=== PATIENT | male | born 1960 | race Two or more races ===

== ENCOUNTER 2016-06-11 20:05 | Inpatient (IN) | payer MEDICAID ==
[~2016-06-11] VITALS: Ht 165.1 cm; Wt 71.1 kg
[2016-06-11] MEDS ORDERED: HYDROcodone-ACET 10/325MG TAB PO ONE (23:45)
[2016-06-12] MEDS ORDERED: ACETAMINOPHEN 325 MG TAB PO ONE ×2 (09:00→16:20)
[2016-06-12] MEDS ORDERED: SODIUM CHLORIDE 0.9% 1,000 ML IV ONE (17:18)
[2016-06-12 17:54] LABS: Basophils # (auto) 0.1 uL; Basophils % (auto) 1.2 % (0.0-2.0); DEFINITIVE VIEW TRANSMISSION; Eosinophils # (auto) 0 uL; Eosinophils % (auto) 0.1 % (0.0-7.0); Hematocrit 31.8 % (41.0-53.0); Hemoglobin 10.2 g/dL (13.5-17.5); Lymphocytes # (auto) 1.1 uL; Lymphocytes % (auto) 9.3 % (10.0-50.0); Mean Corpuscular Hemoglobin 26.7 pg (28.0-32.0); Mean Corpuscular Hgb Conc. 32.2 g/dL (32.0-36.0); Mean Corpuscular Volume 82.8 fL (80.0-100.0); Mean Platelet Volume 7.5 fL (7.4-10.4); Monocytes # (auto) 0.5 uL; Monocytes % (auto) 4.5 % (0.0-12.0); Neutrophils # (auto) 10.2 uL; Neutrophils % (auto) 84.9 % (37.0-80.0); Platelet Count (auto) 646 10^3/uL (140-450); Red Cell Distribution Width 15.3 % (11.6-16.0)
[2016-06-12 18:08] LABS: Partial Thromboplastin Time 36.4 sec (22.64-33.71)
[2016-06-12 18:09] LABS: INR 1.26 (0.9-1.15)
[2016-06-12 18:18] LABS: Albumin 2.6 g/dL (3.4-5.0); Calcium 9.3 mg/dL (8.5-10.1)
[2016-06-12] MEDS: ACETAMINOPHEN 325 MG TAB PO PRN (18:24)
[2016-06-12 18:27] LABS: Bilirubin, Total 0.6 mg/dL (0.2-1.0); Total Protein 8.4 g/dL (6.4-8.2)
[2016-06-12 18:34] LABS: B-Type Natriuretic Peptide 68.21 pg/mL (0-100)
[2016-06-12 18:57] LABS: Potassium 2.6 mmol/L (3.5-5.1)
[2016-06-12] MEDS: POTASSIUM CHL 20MEQ/100ML 100 ML IV SCH ×2 (19:15→22:49)
[2016-06-12] MEDS ORDERED: cefTRIAXone 1GM/50ML D5W 50 ML IV ONE (19:15)
[2016-06-12 20:00] LABS: Temperature: 22.5 C (20.0-25.0)
[2016-06-12] MEDS ORDERED: ACETAMINOPHEN 325 MG TAB PO PRN (21:15)
[2016-06-12] MEDS ORDERED: ONDANSETRON HCL 4 MG/2 ML VIAL IV PRN (21:15)
[2016-06-12 22:30] VITALS: BP 160/77
[2016-06-12] MEDS: ENOXAPARIN SOD 40 MG/0.4 ML SYRINGE SC SCH (22:48)
[2016-06-12] MEDS: FAMOTIDINE 20 MG TAB PO SCH (22:49)
[2016-06-12] MEDS: HYDROcodone-ACET 5/325MG TAB PO PRN (22:49)
[2016-06-12] MEDS: SODIUM CHLORIDE 0.9% 1,000 ML IV SCH (22:49)
[2016-06-12 23:51] VITALS: BP 160/77
[2016-06-13] MEDS ORDERED: IBU800T PO (00:09)
[2016-06-13] MEDS: POTASSIUM CHL 20MEQ/100ML 100 ML IV SCH (03:09)
[2016-06-13 05:00] VITALS: BP 132/74
[2016-06-13 06:25] LABS: Basophils # (auto) 0 uL; Basophils % (auto) 0.4 % (0.0-2.0); DEFINITIVE VIEW TRANSMISSION; Eosinophils # (auto) 0 uL; Eosinophils % (auto) 0.1 % (0.0-7.0); Hematocrit 28.7 % (41.0-53.0); Lymphocytes # (auto) 1.2 uL; Lymphocytes % (auto) 11.5 % (10.0-50.0); Mean Corpuscular Hemoglobin 26.1 pg (28.0-32.0); Mean Corpuscular Hgb Conc. 31.4 g/dL (32.0-36.0); Mean Corpuscular Volume 83.3 fL (80.0-100.0); Mean Platelet Volume 7.9 fL (7.4-10.4); Monocytes # (auto) 0.5 uL; Monocytes % (auto) 4.7 % (0.0-12.0); Neutrophils # (auto) 8.6 uL; Neutrophils % (auto) 83.3 % (37.0-80.0); Platelet Count (auto) 551 10^3/uL (140-450); Red Cell Distribution Width 15.5 % (11.6-16.0); White Blood Cell 10.3 10^3/uL (4.4-10.8)
[2016-06-13] MEDS: HYDROcodone-ACET 5/325MG TAB PO PRN ×4 (06:34→21:16)
[2016-06-13 06:57] LABS: Albumin 2.2 g/dL (3.4-5.0); BUN/Creatinine Ratio 10.7; Bilirubin, Total 0.6 mg/dL (0.2-1.0); Calcium 8.5 mg/dL (8.5-10.1); Total Protein 7.6 g/dL (6.4-8.2)
[2016-06-13 07:05] LABS: Potassium 2.9 mmol/L (3.5-5.1)
[2016-06-13 08:00] VITALS: BP 130/69
[2016-06-13 09:00] VITALS: BP 130/69
[2016-06-13] MEDS: ENOXAPARIN SOD 40 MG/0.4 ML SYRINGE SC SCH (09:59)
[2016-06-13] MEDS: FAMOTIDINE 20 MG TAB PO SCH ×2 (09:59→21:35)
[2016-06-13 10:17] LABS: Urine Bilirubin Negative (Negative); Urine Blood Negative /uL (Negative); Urine Color Yellow (Yellow); Urine Glucose Normal (Normal); Urine Nitrite Negative (Negative); Urine RBC 1 /hpf (0 - 3); Urine Squamous Epithelial Cell FEW /hpf (<5)
[2016-06-13 10:21] LABS: Urine Ketone 3+ (Negative)
[2016-06-13 13:00] VITALS: BP 130/72
[2016-06-13] MEDS: SODIUM CHLORIDE 0.9% 1,000 ML IV SCH ×2 (13:36→23:36)
[2016-06-13 17:00] VITALS: BP_SYST 120; BP_SYST 152; BP_DIAS 53; BP_DIAS 82
[2016-06-13] MEDS: POTASSIUM CHLORIDE 20 MEQ, LIDOCAINE 1% (LOCAL ANESTH.) 2 ML in SODIUM CHL 0.9% 100 ML IV SCH ×3 (17:31→23:36)
[2016-06-13] MEDS: ACETAMINOPHEN 325 MG TAB PO PRN (19:15)
[2016-06-13] MEDS: CELECOXIB 100 MG CAP PO SCH (21:35)
[2016-06-13 22:00] VITALS: BP 116/64
[2016-06-14] MEDS: HYDROcodone-ACET 5/325MG TAB PO PRN ×3 (02:02→10:04)
[2016-06-14 05:30] VITALS: BP 129/82
[2016-06-14 07:54] VITALS: BP 123/78
[2016-06-14 08:32] VITALS: BP 123/78
[2016-06-14 09:08] LABS: Basophils # (auto) 0 uL; Basophils % (auto) 0.4 % (0.0-2.0); DEFINITIVE VIEW TRANSMISSION; Eosinophils # (auto) 0.1 uL; Eosinophils % (auto) 1.5 % (0.0-7.0); Hemoglobin 9.4 g/dL (13.5-17.5); Lymphocytes # (auto) 1.4 uL; Lymphocytes % (auto) 13.9 % (10.0-50.0); Mean Corpuscular Hemoglobin 26.3 pg (28.0-32.0); Mean Corpuscular Hgb Conc. 31.3 g/dL (32.0-36.0); Mean Platelet Volume 7.8 fL (7.4-10.4); Monocytes # (auto) 0.5 uL; Neutrophils % (auto) 79.2 % (37.0-80.0); Platelet Count (auto) 585 10^3/uL (140-450); Red Cell Distribution Width 15.7 % (11.6-16.0); White Blood Cell 10.1 10^3/uL (4.4-10.8)
[2016-06-14 09:23] LABS: BUN/Creatinine Ratio 10.2; Calcium 8.7 mg/dL (8.5-10.1); Potassium 3.1 mmol/L (3.5-5.1)
[2016-06-14] MEDS: ENOXAPARIN SOD 40 MG/0.4 ML SYRINGE SC SCH (09:30)
[2016-06-14] MEDS: CELECOXIB 100 MG CAP PO SCH (09:30)
[2016-06-14] MEDS: FAMOTIDINE 20 MG TAB PO SCH ×2 (10:04→22:21)
[2016-06-14 17:27] VITALS: BP 125/54
[2016-06-14] MEDS ORDERED: POTASSIUM CHL 20 Meq TABLET PO ONE (18:45)
[2016-06-14] MEDS ORDERED: KETOROLAC TROMETH 30 MG/ML 1ML VIAL IV PRN (20:15)
[2016-06-14] MEDS: KETOROLAC TROMETH 30 MG/ML 1ML VIAL IV PRN (20:32)
[2016-06-14 22:00] VITALS: BP 149/81
[2016-06-14] MEDS: methylPREDNISolone SOD SUCC 40 MG/ML VL IV SCH (22:21)
[2016-06-14] MEDS: SODIUM CHLORIDE 0.9% 1,000 ML IV SCH (23:13)
[2016-06-15] VITALS (7 sets, daily range): BP systolic 110–137; BP diastolic 66–78
[2016-06-15] MEDS: methylPREDNISolone SOD SUCC 40 MG/ML VL IV SCH ×2 (09:08→21:14)
[2016-06-15] MEDS: KETOROLAC TROMETH 30 MG/ML 1ML VIAL IV PRN ×3 (09:08→21:14)
[2016-06-15] MEDS: FAMOTIDINE 20 MG TAB PO SCH ×2 (09:08→21:14)
[2016-06-15] MEDS: ENOXAPARIN SOD 40 MG/0.4 ML SYRINGE SC SCH (09:08)
[2016-06-15] MEDS ORDERED: POTASSIUM CHL 20 Meq TABLET PO ONE (10:15)
[2016-06-15 11:55] LABS: Hepatitis B Surface Antibody Negative
[2016-06-15] MEDS: SODIUM CHLORIDE 0.9% 1,000 ML IV SCH (16:05)
[2016-06-15] MEDS ORDERED: BOOST 8 ounces PO SCH ×2 (18:00)
[2016-06-15] MEDS ORDERED: PRO-STAT 64 30ML PO SCH ×2 (18:00)
[2016-06-16] VITALS (7 sets, daily range): BP systolic 126–160; BP diastolic 70–98
[2016-06-16] MEDS: SODIUM CHLORIDE 0.9% 1,000 ML IV SCH (00:22)
[2016-06-16] MEDS: KETOROLAC TROMETH 30 MG/ML 1ML VIAL IV PRN ×2 (04:29→23:50)
[2016-06-16 08:09] LABS: Rheumatoid Arthritis Factor 41.5 IU/mL (0.0-13.9)
[2016-06-16] MEDS: methylPREDNISolone SOD SUCC 40 MG/ML VL IV SCH ×2 (10:25→21:47)
[2016-06-16] MEDS: HYDROcodone-ACET 5/325MG TAB PO PRN ×3 (10:27→19:57)
[2016-06-16] MEDS: POTASSIUM CHL 20 Meq TABLET PO SCH (10:27)
[2016-06-16] MEDS: FAMOTIDINE 20 MG TAB PO SCH ×2 (10:27→21:47)
[2016-06-16] MEDS: ENOXAPARIN SOD 40 MG/0.4 ML SYRINGE SC SCH (10:28)
[2016-06-16 18:06] LABS: Sjogren's Anti-SS-A Antibody <0.2 AI (0.0-0.9)
[2016-06-17] MEDS: SODIUM CHLORIDE 0.9% 1,000 ML IV SCH (04:19)
[2016-06-17 05:29] VITALS: BP 155/73
[2016-06-17 08:59] VITALS: BP 147/78
[2016-06-17] MEDS: FAMOTIDINE 20 MG TAB PO SCH ×2 (09:23→21:52)
[2016-06-17] MEDS: POTASSIUM CHL 20 Meq TABLET PO SCH (09:23)
[2016-06-17] MEDS: methylPREDNISolone SOD SUCC 40 MG/ML VL IV SCH (09:24)
[2016-06-17] MEDS: ENOXAPARIN SOD 40 MG/0.4 ML SYRINGE SC SCH (09:25)
[2016-06-17] MEDS: HYDROcodone-ACET 5/325MG TAB PO PRN ×4 (09:36→21:52)
[2016-06-17 12:51] VITALS: BP 161/88
[2016-06-17 16:19] VITALS: BP 152/90
[2016-06-17 22:00] VITALS: BP 147/83
[2016-06-17] MEDS: TEMAZEPAM 15 MG CAP PO PRN (22:42)
[2016-06-18 05:00] VITALS: BP 143/78
[2016-06-18] MEDS: HYDROcodone-ACET 5/325MG TAB PO PRN ×4 (05:27→19:57)
[2016-06-18 08:00] VITALS: BP 139/87
[2016-06-18 09:00] VITALS: BP 139/87
[2016-06-18] MEDS: FAMOTIDINE 20 MG TAB PO SCH ×2 (10:31→21:55)
[2016-06-18] MEDS: POTASSIUM CHL 20 Meq TABLET PO SCH (10:31)
[2016-06-18] MEDS: ENOXAPARIN SOD 40 MG/0.4 ML SYRINGE SC SCH (10:32)
[2016-06-18 12:31] VITALS: BP 136/83
[2016-06-18] MEDS: NAPROXEN 500 MG TAB PO PRN (15:29)
[2016-06-18] MEDS ORDERED: predniSONE 20 MG TAB PO ONE (15:30)
[2016-06-18 17:02] VITALS: BP 124/77
[2016-06-18 22:00] VITALS: BP 127/84
[2016-06-19] MEDS: HYDROcodone-ACET 5/325MG TAB PO PRN ×5 (00:36→21:12)
[2016-06-19] MEDS: TEMAZEPAM 15 MG CAP PO PRN ×2 (00:51→21:17)
[2016-06-19 05:00] VITALS: BP 98/57
[2016-06-19 09:00] VITALS: BP 136/80
[2016-06-19] MEDS: ENOXAPARIN SOD 40 MG/0.4 ML SYRINGE SC SCH (09:04)
[2016-06-19] MEDS: POTASSIUM CHL 20 Meq TABLET PO SCH (09:05)
[2016-06-19] MEDS: predniSONE 20 MG TAB PO SCH (09:05)
[2016-06-19] MEDS: FAMOTIDINE 20 MG TAB PO SCH ×2 (09:05→21:17)
[2016-06-19] MEDS: NAPROXEN 500 MG TAB PO PRN (09:15)
[2016-06-19 13:00] VITALS: BP 134/77
[2016-06-19 17:00] VITALS: BP 145/87
[2016-06-19 22:00] VITALS: BP_SYST 134; BP_SYST 144; BP_DIAS 74; BP_DIAS 79
[2016-06-20] MEDS: NAPROXEN 500 MG TAB PO PRN (00:42)
[2016-06-20 06:00] VITALS: BP 156/80
[2016-06-20 09:04] VITALS: BP 142/89
[2016-06-20] MEDS: POTASSIUM CHL 20 Meq TABLET PO SCH (10:29)
[2016-06-20] MEDS: predniSONE 20 MG TAB PO SCH (10:29)
[2016-06-20] MEDS: ENOXAPARIN SOD 40 MG/0.4 ML SYRINGE SC SCH (10:30)
[2016-06-20] MEDS: FAMOTIDINE 20 MG TAB PO SCH ×2 (10:30→21:31)
[2016-06-20] MEDS: HYDROcodone-ACET 5/325MG TAB PO PRN ×2 (10:31→19:38)
[2016-06-20 13:07] VITALS: BP 127/77
[2016-06-20 16:40] VITALS: BP 139/78
[2016-06-20 21:29] VITALS: BP 115/63
[2016-06-20] MEDS: TEMAZEPAM 15 MG CAP PO PRN (21:31)
[2016-06-21] MEDS: HYDROcodone-ACET 5/325MG TAB PO PRN ×3 (00:17→18:33)
[2016-06-21 05:05] VITALS: BP 116/75
[2016-06-21 08:30] VITALS: BP 132/10
[2016-06-21] MEDS: FAMOTIDINE 20 MG TAB PO SCH ×2 (09:49→22:02)
[2016-06-21] MEDS: predniSONE 20 MG TAB PO SCH (09:49)
[2016-06-21] MEDS: POTASSIUM CHL 20 Meq TABLET PO SCH (09:49)
[2016-06-21] MEDS: ENOXAPARIN SOD 40 MG/0.4 ML SYRINGE SC SCH (09:49)
[2016-06-21 13:00] VITALS: BP 125/57
[2016-06-21 16:55] VITALS: BP 132/79
[2016-06-21] MEDS: NAPROXEN 500 MG TAB PO PRN (20:51)
[2016-06-21 21:57] VITALS: BP 134/80
[2016-06-21] MEDS: TEMAZEPAM 15 MG CAP PO PRN (22:02)
[2016-06-22 04:55] VITALS: BP 137/87
[2016-06-22] MEDS: HYDROcodone-ACET 5/325MG TAB PO PRN ×3 (06:50→20:21)
[2016-06-22 09:00] VITALS: BP 146/80
[2016-06-22] MEDS: FAMOTIDINE 20 MG TAB PO SCH ×2 (10:00→22:17)
[2016-06-22] MEDS: POTASSIUM CHL 20 Meq TABLET PO SCH (10:00)
[2016-06-22] MEDS: predniSONE 20 MG TAB PO SCH (10:00)
[2016-06-22] MEDS: ENOXAPARIN SOD 40 MG/0.4 ML SYRINGE SC SCH (10:01)
[2016-06-22 13:00] VITALS: BP 111/67
[2016-06-22 17:00] VITALS: BP 128/77
[2016-06-22 21:47] VITALS: BP 125/84
[2016-06-22] MEDS: TEMAZEPAM 15 MG CAP PO PRN (22:17)
[2016-06-22] MEDS: NAPROXEN 500 MG TAB PO PRN (22:17)
[2016-06-23 05:00] VITALS: BP 111/75
[2016-06-23 08:00] VITALS: BP 145/78
[2016-06-23] MEDS: HYDROcodone-ACET 5/325MG TAB PO PRN ×3 (08:37→20:40)
[2016-06-23 09:26] VITALS: BP 145/78
[2016-06-23] MEDS: FAMOTIDINE 20 MG TAB PO SCH ×2 (10:10→23:03)
[2016-06-23] MEDS: POTASSIUM CHL 20 Meq TABLET PO SCH (10:10)
[2016-06-23] MEDS: ENOXAPARIN SOD 40 MG/0.4 ML SYRINGE SC SCH (10:10)
[2016-06-23] MEDS: predniSONE 20 MG TAB PO SCH (10:10)
[2016-06-23 12:11] VITALS: BP 95/55
[2016-06-23 17:18] VITALS: BP 138/78
[2016-06-23] MEDS: NAPROXEN 500 MG TAB PO PRN (20:40)
[2016-06-23 22:00] VITALS: BP 146/81
[2016-06-23] MEDS: TEMAZEPAM 15 MG CAP PO PRN (23:00)
[2016-06-24] MEDS: HYDROcodone-ACET 5/325MG TAB PO PRN ×4 (01:07→18:13)
[2016-06-24 05:00] VITALS: BP 142/89
[2016-06-24 09:00] VITALS: BP 120/75
[2016-06-24] MEDS: predniSONE 20 MG TAB PO SCH (09:12)
[2016-06-24] MEDS: NAPROXEN 500 MG TAB PO PRN ×2 (09:13→21:25)
[2016-06-24] MEDS: POTASSIUM CHL 20 Meq TABLET PO SCH (09:14)
[2016-06-24] MEDS: FAMOTIDINE 20 MG TAB PO SCH ×2 (09:14→21:26)
[2016-06-24] MEDS: ENOXAPARIN SOD 40 MG/0.4 ML SYRINGE SC SCH (09:14)
[2016-06-24 13:00] VITALS: BP 108/66
[2016-06-24 17:00] VITALS: BP 128/82
[2016-06-24] MEDS: TEMAZEPAM 15 MG CAP PO PRN (21:26)
[2016-06-24 22:00] VITALS: BP 116/68
[2016-06-25] MEDS: HYDROcodone-ACET 5/325MG TAB PO PRN ×4 (04:31→22:09)
[2016-06-25 04:55] VITALS: BP 139/82
[2016-06-25 09:00] VITALS: BP 113/64
[2016-06-25] MEDS: ENOXAPARIN SOD 40 MG/0.4 ML SYRINGE SC SCH (10:31)
[2016-06-25] MEDS: FAMOTIDINE 20 MG TAB PO SCH ×2 (10:31→22:09)
[2016-06-25] MEDS: NAPROXEN 500 MG TAB PO PRN ×2 (10:32→22:25)
[2016-06-25] MEDS: predniSONE 20 MG TAB PO SCH (10:32)
[2016-06-25] MEDS: POTASSIUM CHL 20 Meq TABLET PO SCH (10:32)
[2016-06-25 13:00] VITALS: BP 115/66
[2016-06-25 17:00] VITALS: BP 117/76
[2016-06-25] MEDS: TEMAZEPAM 15 MG CAP PO PRN (17:35)
[2016-06-25 21:40] VITALS: BP 117/80
[2016-06-26] MEDS: HYDROcodone-ACET 5/325MG TAB PO PRN ×4 (03:51→21:03)
[2016-06-26 04:38] VITALS: BP 130/72
[2016-06-26 07:00] VITALS: BP 112/70
[2016-06-26] MEDS: POTASSIUM CHL 20 Meq TABLET PO SCH (09:10)
[2016-06-26] MEDS: ENOXAPARIN SOD 40 MG/0.4 ML SYRINGE SC SCH (09:10)
[2016-06-26] MEDS: predniSONE 20 MG TAB PO SCH (09:10)
[2016-06-26] MEDS: FAMOTIDINE 20 MG TAB PO SCH ×2 (09:11→21:01)
[2016-06-26 11:57] VITALS: BP 125/76
[2016-06-26 16:52] VITALS: BP 108/68
[2016-06-26 20:00] VITALS: BP 127/67
[2016-06-26] MEDS: NAPROXEN 500 MG TAB PO PRN (21:07)
[2016-06-26 22:00] VITALS: BP 127/67
[2016-06-27] VITALS (7 sets, daily range): BP systolic 112–135; BP diastolic 80–97
[2016-06-27] MEDS: TEMAZEPAM 15 MG CAP PO PRN (00:33)
[2016-06-27] MEDS: HYDROcodone-ACET 5/325MG TAB PO PRN ×5 (01:07→22:26)
[2016-06-27] MEDS: POTASSIUM CHL 20 Meq TABLET PO SCH (12:09)
[2016-06-27] MEDS: FAMOTIDINE 20 MG TAB PO SCH ×2 (12:09→12:11)
[2016-06-27] MEDS: predniSONE 20 MG TAB PO SCH (12:10)
[2016-06-27] MEDS: ENOXAPARIN SOD 40 MG/0.4 ML SYRINGE SC SCH (12:10)
[2016-06-27] MEDS: NAPROXEN 500 MG TAB PO PRN (12:17)
[2016-06-28] VITALS (7 sets, daily range): BP systolic 107–134; BP diastolic 68–80
[2016-06-28] MEDS ORDERED: NAPROXEN 500 MG TAB PO ONE
[2016-06-28] MEDS ORDERED: TEMAZEPAM 15 MG CAP PO ONE
[2016-06-28] MEDS ORDERED: GASTROGRAFIN 120 ML SOL ONE (12:38)
[2016-06-28] MEDS: predniSONE 20 MG TAB PO SCH (13:01)
[2016-06-28] MEDS: POTASSIUM CHL 20 Meq TABLET PO SCH (13:02)
[2016-06-28] MEDS: ENOXAPARIN SOD 40 MG/0.4 ML SYRINGE SC SCH (13:02)
[2016-06-28] MEDS: FAMOTIDINE 20 MG TAB PO SCH ×2 (13:02→22:00)
[2016-06-29 05:30] VITALS: BP 112/73
[2016-06-29 09:00] VITALS: BP 122/77
[2016-06-29] MEDS: predniSONE 20 MG TAB PO SCH (10:00)
[2016-06-29] MEDS: ENOXAPARIN SOD 40 MG/0.4 ML SYRINGE SC SCH (10:00)
[2016-06-29] MEDS: FAMOTIDINE 20 MG TAB PO SCH (10:00)
[2016-06-29] MEDS: POTASSIUM CHL 20 Meq TABLET PO SCH (10:00)
[2016-06-29 13:00] VITALS: BP 101/64
== END 2016-06-29 19:50 | disposition home or self-care (01) | DRG 346 ==
LOC: ER 20:09 → EAST 20:10 → EDBD 20:10 → EAST 06-12 22:04 → UNDODISIN 06-27 19:40
PROVIDERS: ADMIT Nurse Practitioner; ATTEND Internal Medicine Pulmonary Disease
DX: M06.9 Rheumatoid arthritis, unspecified (principal); E43 Unspecified severe protein-calorie malnutrition; E88.09 Other disorders of plasma-protein metabolism, not elsewhere classified; M06.4 Inflammatory polyarthropathy; S56.911A Strain of unspecified muscles, fascia and tendons at forearm level, right arm, initial encounter; D47.3 Essential (hemorrhagic) thrombocythemia; R62.7 Adult failure to thrive; S83.91XA Sprain of unspecified site of right knee, initial encounter; D64.9 Anemia, unspecified; E87.6 Hypokalemia; D75.89 Other specified diseases of blood and blood-forming organs; M79.1 Myalgia; W19.XXXA Unspecified fall, initial encounter; Z59.0 Homelessness; Z91.81 History of falling; Z68.26 Body mass index [BMI] 26.0-26.9, adult; Y93.89 Activity, other specified; Y92.89 Other specified places as the place of occurrence of the external cause
CPT/HCPCS: 36415; 71010; 72040; 73130; 73562; 73590; 80048; 80053; 81001; 83516; 83880; 84132; 84484; 84550; 85025; 85610; 85652; 85730; 86141; 86200; 86225; 86235; 86431; 86706; 86803; 86812; 87040; 87081; 87340; 96365; 97001; 97110; 97116; 97530; J0696; J1885; J2001; J3480

== ENCOUNTER 2016-07-10 19:39 | Emergency (ER) | payer MEDICAID ==
[~2016-07-10] VITALS: Ht 165.1 cm; Wt 90.7 kg
[2016-07-10 21:16] LABS: Basophils # (auto) 0 uL; Basophils % (auto) 0.3 % (0.0-2.0); DEFINITIVE VIEW TRANSMISSION; Eosinophils # (auto) 0.3 uL; Eosinophils % (auto) 2.4 % (0.0-7.0); Hematocrit 37.4 % (41.0-53.0); Hemoglobin 12.2 g/dL (13.5-17.5); Lymphocytes # (auto) 1.4 uL; Lymphocytes % (auto) 12.2 % (10.0-50.0); Mean Corpuscular Hemoglobin 26.8 pg (28.0-32.0); Mean Corpuscular Hgb Conc. 32.6 g/dL (32.0-36.0); Mean Corpuscular Volume 82.1 fL (80.0-100.0); Mean Platelet Volume 7.4 fL (7.4-10.4); Monocytes # (auto) 0.4 uL; Monocytes % (auto) 3.8 % (0.0-12.0); Neutrophils # (auto) 9.5 uL; Neutrophils % (auto) 81.3 % (37.0-80.0); Platelet Count (auto) 324 10^3/uL (140-450); Red Cell Distribution Width 17.2 % (11.6-16.0); White Blood Cell 11.7 10^3/uL (4.4-10.8)
[2016-07-10 21:30] LABS: Prothrombin Time 10.3 sec (9.37-12.3)
[2016-07-10 21:40] LABS: Albumin 3.4 g/dL (3.4-5.0); BUN/Creatinine Ratio 10.7; Bilirubin, Total 0.3 mg/dL (0.2-1.0); Calcium 9.2 mg/dL (8.5-10.1); Potassium 3.9 mmol/L (3.5-5.1); Uric Acid 5.3 mg/dL (3.5-7.2)
[2016-07-11 00:25] LABS: Urine Bilirubin Negative (Negative); Urine Blood Negative /uL (Negative); Urine Color Yellow (Yellow); Urine Glucose 3+ mg/dL (Normal); Urine Ketone Negative (Negative); Urine Nitrite Negative (Negative); Urine RBC <1 /hpf (0 - 3); Urine pH 7.5 (5.0-8.0)
[2016-07-11] MEDS ORDERED: KETOROLAC TROMETH 30 MG/ML 1ML VIAL IV ONE (01:45)
[2016-07-11] MEDS ORDERED: SODIUM CHLORIDE 0.9% 1,000 ML IV ONE (01:45)
[2016-07-11] MEDS ORDERED: cefTRIAXone 1GM/50ML D5W 50 ML IV ONE (02:30)
[2016-07-11] MEDS ORDERED: HYDROmorphone HCL 2 MG/ML VL IV ONE (02:30)
[2016-07-11] MEDS ORDERED: ONDANSETRON HCL 4 MG/2 ML VIAL IV ONE (02:30)
[2016-07-11 03:34] VITALS: BP 112/68
== END 2016-07-11 05:11 | disposition home or self-care (01) ==
LOC: EDBD 19:39 → ER 19:42
DX: S83.91XA Sprain of unspecified site of right knee, initial encounter (principal); R73.9 Hyperglycemia, unspecified; L03.113 Cellulitis of right upper limb; Y09 Assault by unspecified means; Y93.89 Activity, other specified; Y99.9 Unspecified external cause status; Y92.89 Other specified places as the place of occurrence of the external cause
CPT/HCPCS: 36415; 73130; 73562; 80053; 81001; 84550; 85025; 85610; 85730; 93970; 96361; 96365; 96375; 99285; J0696; J1170; J1885; J2405; J7030; 96374